=== PATIENT | male | born 1990 ===

== ENCOUNTER 2017-02-07 03:51 | Observation (INO) | payer OTHER ==
[2017-02-07 03:57] VITALS: BP 146/82; PULSE 131; RESP 16; TEMP 99.3; O2SAT 98
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
== END 2017-02-07 07:02 | disposition home or self-care (01) ==
LOC: H.ER 03:51 → H.EROBSV 04:45
PROVIDERS: ADMIT Emergency Medicine; ATTEND Emergency Medicine
DX: S01.81XA Laceration without foreign body of other part of head, initial encounter (principal); Y04.2XXA Assault by strike against or bumped into by another person, initial encounter; Z23 Encounter for immunization; Y93.9 Activity, unspecified; Y92.410 Unspecified street and highway as the place of occurrence of the external cause
CPT/HCPCS: 12011; 70450; 70480; 72125; 90471; 90715; 99282; G0378